=== PATIENT | male | born 1995 | race Caucasian/White ===

== ENCOUNTER 2017-03-14 16:54 | Emergency (ER) | payer BC ==
[2017-03-14 17:00] VITALS: TEMP 97.7
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
[2017-03-14 19:42] VITALS: BP 125/80; PULSE 88
[2017-03-14] MEDS ORDERED: CEPHALEXIN 500 MG CAP PO ONE (20:09)
[2017-03-14 20:37] VITALS: RESP 16; O2SAT 96
== END 2017-03-14 20:33 | disposition home or self-care (01) ==
PROC: 0HQJXZZ Repair Left Upper Leg Skin, External Approach (ICD-10-PCS; principal; 2017-03-14)
DX: S71.112A Laceration without foreign body, left thigh, initial encounter (principal); S00.81XA Abrasion of other part of head, initial encounter; V18.4XXA Pedal cycle driver injured in noncollision transport accident in traffic accident, initial encounter; Y92.410 Unspecified street and highway as the place of occurrence of the external cause; Y93.55 Activity, bike riding